=== PATIENT | male | born 1960 | race Caucasian/White ===

== ENCOUNTER 2016-10-06 14:46 | Outpatient (CLI) | payer MEDICARE ==
--- NOTE | 2016-10-06 16:03 | Diagnostic Imaging Report ---
Indication: COUGH Technique: 2 views of the chest Comparison: 08/04/2008. Findings: Lungs and pleural spaces are clear. Heart size is upper limits normal. Bones are unremarkable except for mild degenerative spondylosis changes. No significant interim change Impression: No acute process
== END 2016-10-06 16:46 | disposition home or self-care (01) ==
LOC: RAD 14:46
DX: R05 Cough (principal); M47.9 Spondylosis, unspecified
CPT/HCPCS: 71020